=== PATIENT | male | born 1990 | race Caucasian/White ===

== ENCOUNTER 2017-07-12 11:58 | Outpatient (CLI) | payer OTHER ==
[2015-08-26 17:23] VITALS: BP 134/81
--- NOTE | 2017-07-12 14:25 | Diagnostic Imaging Report ---
ARACELI JESUS - JORGE [facility] [id number] [facility] [address] [address] Report Submission Date: Jul 12, 2017 1:02:45 PM CDT Patient Study Name: LINO GONZALEZ Date: Jul 12, 2017 12:13:43 PM CDT Modality Type: CR Gender: M Description: SPINE : 89 Institution: [facility] Physician: ARACELI JESUS Examination: Plain film lumbar spine History: Fall Findings: 3 views of the lumbar spine demonstrate normal height. No anterior compression. No soft tissue abnormalities. Impression: No compression deformity. Electronically signed on Jul 12, 2017 1:02:45 PM CDT by: Esau GUERRA
== END 2017-07-12 12:00 ==
LOC: RAD 11:58
PROVIDERS: ATTEND Family Medicine
DX: M54.5 Low back pain (principal)
CPT/HCPCS: 72100